=== PATIENT | female | born 1985 | race Caucasian/White ===

== ENCOUNTER 2018-06-13 18:54 | Emergency (ER) | payer BC ==
[2018-06-13 19:28] LABS: #Basophils 0.1 thou/uL (0.0-0.2); #Lymphocytes 1.3 thou/uL (1.20-3.40); #Monocytes 0.6 thou/uL (0.11-0.59); #Neutrophils 2.5 thou/uL (1.40-6.50); %Basophils 1.7 % (0.0-1.0); %Eosinophils 0.1 % (0.0-10.0); %Lymphocytes 29.4 % (21.0-51.0); %Monocytes 12.7 % (0.0-10.0); %Neutrophils 56.2 % (42.0-75.0); Hemoglobin 14.2 g/dL (12.0-16.0); Mean Corpuscular HGB CONC 33.4 g/dL (32.0-36.0); Mean Corpuscular Hemoglobin 32.7 pg (27.0-31.0); Mean Corpuscular Volume 97.8 fL (78.0-98.0); Mean Platelet Volume 7.8 fL (7.4-10.4); Platelet Count 200 thou/uL (130-400); RBC Distribution Width 10.5 % (11.5-14.5); Red Blood Cell (RBC) Count 4.34 mill/uL (4.20-5.40); White Blood Cell (WBC) Count 4.5 thou/uL (4.8-10.8)
[2018-06-13 19:56] LABS: ALT (SGPT) 18 U/L (8-55); AST (SGOT) 24 U/L (5-34); Albumin 4.4 g/dL (3.5-5.0); Alkaline Phosphatase 61 U/L (40-150); Anion Gap 11 mmol/L (10-20); BUN (Urea Nitrogen) 9 mg/dL (7.0-18.7); Bilirubin, Total 0.3 mg/dL (0.2-1.2); Calc. Creatinine Clearance 0 mL/min (70-130); Calcium 9.5 mg/dL (7.8-10.44); Carbon Dioxide 25 mmol/L (22-29); Chloride 106 mmol/L (98-107); Estimated GFR-MDRD 89; Globulin 2.7 g/dL (2.4-3.5); Glucose 77 mg/dL (70-105); Potassium 3.8 mmol/L (3.5-5.1); Protein, Total 7.1 g/dL (6.0-8.3); Sodium 138 mmol/L (136-145)
[2018-06-13 20:00] LABS: Bilirubin Negative (Negative); Blood, Urine Negative (Negative); Clarity CLEAR (Clear); Glucose, Urine (Dipstick) Negative (Negative); Leukocyte Negative (Negative); Nitrite Negative (Negative); Protein, Urine (Dipstick) Negative (Neg-Trace); Specific Gravity, Urine 1.012 (1.002-1.036); Urobilinogen 0.2 mg/dL (0.2-1.0); pH, Urine 5.5 (5.0-9.0)
[2018-06-13] MEDS ORDERED: Ondansetron ODT 4 MG TAB ONE (20:53)
== END 2018-06-13 21:19 | disposition home or self-care (01) ==
LOC: ERS 18:54
DX: O21.9 Vomiting of pregnancy, unspecified (principal); O99.511 Diseases of the respiratory system complicating pregnancy, first trimester; J06.9 Acute upper respiratory infection, unspecified; Z3A.01 Less than 8 weeks gestation of pregnancy
CPT/HCPCS: 36415; 80053; 81003; 85025; 87086; 87804; 99284; Q0162

== ENCOUNTER 2018-07-12 16:59 | Outpatient (CLI) | payer BC ==
[2018-07-12 17:47] LABS: Hemoglobin 13.5 g/dL (12.0-16.0); Mean Corpuscular HGB CONC 32.3 g/dL (32.0-36.0); Mean Corpuscular Hemoglobin 32.2 pg (27.0-31.0); Mean Corpuscular Volume 99.4 fL (78.0-98.0); Mean Platelet Volume 7.2 fL (7.4-10.4); Platelet Count 298 thou/uL (130-400); RBC Distribution Width 11.2 % (11.5-14.5); White Blood Cell (WBC) Count 8.6 thou/uL (4.8-10.8)
== END 2018-07-12 17:00 | disposition home or self-care (01) ==
LOC: LABBT 16:59
PROVIDERS: ATTEND Obstetrics & Gynecology
DX: Z01.812 Encounter for preprocedural laboratory examination (principal); G56.01 Carpal tunnel syndrome, right upper limb
CPT/HCPCS: 85027; 86850; 86900; 86901

== ENCOUNTER 2018-07-14 07:33 | Day surgery (SDC) | payer BC ==
[2018-07-12 17:29] VITALS: BMI 20.5
--- NOTE | 2018-07-14 07:25 | HP ---
She is scheduled for surgery on Tuesday morning, July 14. HISTORY OF PRESENT ILLNESS: Ms. Calixto is a 32-year-old white female, G1, P0, who was 11-12 weeks by ultrasound at 7 weeks. She came for routine OB visit on 07/12. We were unable to auscultate heart tones by Doppler, and therefore, transvaginal ultrasound was performed. Unfortunately, an 8-week embryonic demise was confirmed. The patient denied any current vaginal bleeding or any pelvic pain. PAST MEDICAL HISTORY: Negative. PAST SURGICAL HISTORY: Tonsillectomy. FAMILY HISTORY: Noncontributory. ALLERGIES: SHE HAS ALLERGIES TO AUGMENTIN. SOCIAL HISTORY: Nonsmoker. No drinking. She is . OB LABS: Significant for her blood type is B negative. Urine culture was negative. Chlamydia and gonorrhea were negative. HIV, hepatitis B surface antigen, HIV were all negative. PHYSICAL EXAMINATION: VITAL SIGNS: Her blood pressure is 118/68, weight 120 pounds, pulse regular at 70. HEENT: Within normal limits. CHEST: Clear to auscultation. HEART: Regular rate and rhythm. S1 and S2 heart sounds. No murmurs, rubs, or gallops. ABDOMEN: Soft, nontender, nondistended with no palpable masses. PELVIC: Vulva and vagina had no lesions. Cervix had no lesions. Os was closed. Her uterus was 8-week size and retroverted. No adnexal masses were seen or palpated. ASSESSMENT: This is a 32-year-old white female, G1, P0, with 8-week embryonic demise, missed miscarriage. PLAN: Plan is to proceed with suction D and C on 07/14/2018. The patient will receive 800 mcg of vaginal Cytotec 3 hours prior to the procedure for cervical ripening. Risks and benefits of procedure have been discussed in detail. She is set for 07/14/2018. Job ID: [id number]
[2018-07-14] MEDS ORDERED: Fentanyl 100 MCG/2 ML VIAL ONE (09:32)
[2018-07-14] MEDS ORDERED: Midazolam HCl 2 mg/2 ml Vial ONE (09:46)
[2018-07-14] MEDS ORDERED: Clindamycin/D5W 900 mg/50 ml Premix Bag ONE (10:12)
[2018-07-14] MEDS ORDERED: Meperidine HCl/PF 25 MG/ML VIAL ONE (10:40)
--- NOTE | 2018-07-14 11:10 | OP ---
DATE OF PROCEDURE: 07/14/2018 PREOPERATIVE DIAGNOSES: 1. 32-year-old white female, G1, P0, with 8-week embryonic demise. 2. Rh negative. POSTOPERATIVE DIAGNOSES: 1. 32-year-old white female, G1, P0, with 8-week embryonic demise. 2. Rh negative. PROCEDURE PERFORMED: Suction dilatation and curettage. ANESTHESIA: General endotracheal. ESTIMATED BLOOD LOSS: 400 mL. COMPLICATIONS: None. COUNTS: Correct x2. ANTIBIOTICS: Clindamycin 900 mg IV, on-call to OR. FINDINGS: 1. Uterus sounded to 11 cm. Copious products of conception were evacuated from the endometrial cavity. 2. Scant vaginal bleeding noted postprocedure. DISPOSITION: Recovery room and the patient will receive one amp of IV Rhophylac for Rh-negative status and plan for discharge home from Day Stay with followup in approximately three weeks. DESCRIPTION OF PROCEDURE: The patient previously received informed consent in regard to surgery. She was taken back to the operating room, where she received general endotracheal anesthetic agent without complications. She was placed in dorsal lithotomy position and was prepped and draped in usual sterile fashion. An in and out catheterization of the bladder was performed with 100 mL of clear urine draining. She was then examined under anesthesia, noted to be retroverted. Speculum was placed. The anterior lip of the cervix was grasped with a single-tooth tenaculum. Uterus sounded to 11 cm. The uterus was then sequentially dilated to a size 18 Torres dilator. A size 8 mm curved curette was chosen and sharp curettage of the cavity was initially performed loosening of the products of conception. The cavity was then carefully and meticulously suctioned until minimal tissue was removed. Again, sharp curettage was performed loosening up any remaining fragments of tissue. This again was suctioned to 60 mm pressure. Once there was scant tissue being removed, the suctioning was stopped. Tenaculum was removed. A sponge stick was placed in the vagina over the tenaculum site and hemostasis was noted. The uterus had been massaged and was firm and no active supracervical bleeding of significance was noted. The patient was awakened from the anesthesia and transferred to recovery room in stable condition. Job ID: [id number]
[2018-07-14] MEDS ORDERED: HYDROcodone/Acetaminophen 5/325 mg Tablet ONE (12:13)
[2018-07-14] MEDS ORDERED: Dexamethasone 20 MG/5 ML VIAL ONE (13:48)
[2018-07-14] MEDS ORDERED: Lidocaine 1% PF 5 ML VIAL ONE (13:48)
[2018-07-14] MEDS ORDERED: Metoclopramide HCl 10 MG/2 ML VIAL ONE (13:48)
[2018-07-14] MEDS ORDERED: PROPOFOL 200 MG/20 ML VIAL ONE (13:48)
[2018-07-14] MEDS ORDERED: Ondansetron PF 4 MG/2 ML Vial ONE (13:48)
[2018-07-14] MEDS ORDERED: Ketorolac Tromethamine 30 MG/ML VIAL ONE (13:48)
== END 2018-07-14 13:40 | disposition home or self-care (01) ==
LOC: SDC 07:33
PROVIDERS: ATTEND Obstetrics & Gynecology
PROC: 10D17ZZ Extraction of Products of Conception, Retained, Via Natural or Artificial Opening (ICD-10-PCS; principal; 2018-07-14)
DX: O02.1 Missed abortion (principal); Z90.89 Acquired absence of other organs; Z88.1 Allergy status to other antibiotic agents; Z79.899 Other long term (current) drug therapy
CPT/HCPCS: 88233; 88262; 88291; 88305; 90384; 96372; J2175; J2250; J3010; J3490

== ENCOUNTER 2019-09-24 03:50 | Outpatient (CLI) | payer BC, OTHER ==
[2019-09-24 18:17] LABS: SARS-CoV-2 MS2 Positive; SARS-CoV-2 N Gene Negative; SARS-CoV-2 S Gene Negative; SARS-CoV-2 orf1ab Negative
== END 2019-09-24 03:51 | disposition home or self-care (01) ==
LOC: ERS 03:50
PROVIDERS: ATTEND Obstetrics & Gynecology
DX: Z01.812 Encounter for preprocedural laboratory examination (principal); Z20.828 Contact with and (suspected) exposure to other viral communicable diseases
CPT/HCPCS: 87635; U0003

== ENCOUNTER 2019-09-24 19:15 | Inpatient (IN) | payer BC, OTHER ==
[~2019-09-24 19:15] MED LIST: Bupivacaine/Epinephrine 0.25% 30 ML VIAL ONE
[2019-09-24] MEDS ORDERED: HYDROcodone/Acetaminophen 5/325 mg Tablet PO PRN (20:16)
[2019-09-24] MEDS ORDERED: Lidocaine 1% (PF) 30 ML VIAL SC PRN (20:16)
[2019-09-24] MEDS ORDERED: hydrALAZINE 20 MG/ML VIAL SLOW IVP PRN (20:16)
[2019-09-24] MEDS ORDERED: Butorphanol Tartrate 1 MG/ML VIAL SLOW IVP PRN (20:16)
[2019-09-24] MEDS ORDERED: Ibuprofen 800 MG TAB PO PRN (20:16)
[2019-09-24] MEDS ORDERED: Ondansetron PF 4 MG/2 ML Vial IVP PRN (20:16)
[2019-09-24] MEDS ORDERED: Misoprostol 200 MCG TAB PR PRN (20:16)
[2019-09-24] MEDS ORDERED: Carboprost 250 MCG/ML AMP IM PRN (20:16)
[2019-09-24] MEDS ORDERED: Zolpidem Tartrate 5 MG TAB PO PRN (20:16)
[2019-09-24] MEDS ORDERED: NS / Oxytocin 40 units/1000ml 1,000 ML IV PRN (20:16)
[2019-09-24] MEDS ORDERED: Acetaminophen 500 MG TAB PO PRN (20:16)
[2019-09-24] MEDS ORDERED: Diphenoxylate HCl/Atropine Tablet PO PRN ×2 (20:16)
[2019-09-24] MEDS ORDERED: Promethazine HCl 25 MG/ML VIAL IM PRN (20:16)
[2019-09-24 20:25] VITALS: BMI 27.1
[2019-09-24] MEDS ORDERED: NS w/ Oxytocin 10 units 500 ML IV SCH (20:30)
[2019-09-24] MEDS: Lactated Ringer's 1,000 ML IV SCH (20:56)
[2019-09-24] MEDS: Misoprostol 100 MCG TAB VAG SCH (20:56)
[2019-09-24 21:19] LABS: Hemoglobin 14.2 g/dL (12.0-16.0); Mean Corpuscular HGB CONC 33.2 g/dL (32.0-36.0); Mean Corpuscular Hemoglobin 33.3 pg (27.0-31.0); Mean Platelet Volume 8.4 fL (7.4-10.4); Platelet Count 277 thou/uL (130-400); RBC Distribution Width 10.9 % (11.5-14.5); Red Blood Cell (RBC) Count 4.28 mill/uL (4.20-5.40); White Blood Cell (WBC) Count 12.3 thou/uL (4.8-10.8)
[2019-09-24 21:58] LABS: HBSAg Index 0.11 S/CO (0-0.99); Hep B Surf Ag Non-Reactive S/CO (NonReactive); Syphilis Antibody Nonreactive (Nonreactive); Syphilis Antibody Index 0.04 S/CO (<1.00 Non-Reactive)
[2019-09-25] MEDS ORDERED: Fentanyl 4 mcg/Bup 0.1% Cadd 100 ML ONE (02:16)
[2019-09-25] MEDS: Lactated Ringer's 1,000 ML IV SCH ×2 (02:35→19:58)
[2019-09-25] MEDS ORDERED: EPHEDRINE 25 MG/5 ML SYRINGE SLOW IVP PRN (03:37)
[2019-09-25] MEDS ORDERED: Lactated Ringer's 500 ML IV PRN (03:37)
[2019-09-25] MEDS ORDERED: Promethazine HCl 25 MG/ML VIAL IM PRN (03:37)
[2019-09-25] MEDS ORDERED: Naloxone HCl 0.4 mg/ml Vial IVP PRN ×2 (03:37)
[2019-09-25] MEDS ORDERED: diphenhydrAMINE 50 MG/ML VIAL IVP PRN (03:37)
[2019-09-25] MEDS ORDERED: Acetaminophen 325 MG TAB PO PRN (03:37)
[2019-09-25] MEDS ORDERED: Ondansetron PF 4 MG/2 ML Vial IVP PRN (03:37)
[2019-09-25] MEDS ORDERED: Fentanyl 4 mcg/Bupivacaine 0.1% Cassette 100 ML EPIDURAL SCH (03:45)
[2019-09-25] MEDS ORDERED: Communication Order-Pharmacy FS SCH (03:45)
[2019-09-25] MEDS: Misoprostol 100 MCG TAB VAG SCH ×3 (05:59→19:58)
[2019-09-25] MEDS: NS / Oxytocin 40 units/1000ml 1,000 ML IV SCH ×2 (08:03→09:21)
[2019-09-25 08:26] LABS: Actual Bicarbonate (HCO3v) 20 mEq/L (22-28); Analyzer IN Cardio OR; Base Excess -5.4 mEq/L (-2.0 to +3.0); pH (Cord, venous) 7.35 (7.32-7.43)
[2019-09-25 08:28] LABS: Actual Bicarbonate (HCO3a) 22.2 mEq/L (22-28); Analyzer IN Cardio OR; Base Excess (BEa) -6.4 mEq/L (-2.0 to +3.0)
--- NOTE | 2019-09-25 08:39 | PDOC.OPDEL ---
OB Operative/Delivery Note Delivery Dr/Surgeon: Scooter Pre-Delivery Diagnosis: elective induction, non-reassuring tracing, other (Non reassurring feta heart rate tracing in second stage c/c/+4 OA. Lei see forceps applied. ABG cord gas 7.22....) Procedure/Post Delivery Dx: operative vaginal delivery Weeks gestation: 40 Anesthesia: epidural - Findings A Sex: female - Additional Findings/Plan Placenta delivered: spontaneous Repaired Obstetrical Laceration: 2nd degree (Bilateral vaginal side palencia repaired.)
[2019-09-25] MEDS ORDERED: Lanolin Ointment 7 GM TUBE TOP PRN (08:40)
[2019-09-25] MEDS ORDERED: traMADol HCl 50 MG TAB PO PRN (08:40)
[2019-09-25] MEDS ORDERED: Adacel (T-DAP) 0.5 ML SYRINGE IM ONE (08:40)
[2019-09-25] MEDS ORDERED: Bisacodyl 10 MG SUPP PR PRN (08:40)
[2019-09-25] MEDS ORDERED: Milk Of Magnesia 30 ML UDCUP PO PRN (08:40)
[2019-09-25] MEDS ORDERED: Preparation H Ointment 28 GM TUBE PR PRN (08:40)
[2019-09-25] MEDS ORDERED: Benzocaine-Menthol 82.5 ML CAN TOP PRN (08:40)
[2019-09-25] MEDS ORDERED: hydrALAZINE 20 MG/ML VIAL SLOW IVP PRN (08:40)
[2019-09-25] MEDS: Prenatal Vitamin 1 TAB PO SCH (11:17)
[2019-09-25] MEDS: Docusate Calcium (SURFAK) 240 MG CAP PO SCH ×2 (11:17→22:17)
[2019-09-25] MEDS: Ibuprofen 800 MG TAB PO SCH ×2 (14:40→22:17)
[2019-09-25] MEDS ORDERED: Naloxone HCl 0.4 mg/ml Vial ONE (17:20)
[2019-09-26] MEDS: Ibuprofen 800 MG TAB PO SCH ×3 (05:19→21:06)
--- NOTE | 2019-09-26 07:44 | PDOC.PP ---
Post Progress Note Post Day #: 1 Subjective: Working on breast feeding. PO intake tolerated: yes Flatus: yes Ambulation: yes Vital Signs (12 hours) Temp Pulse Resp BP Pulse Ox 09/26/19 05:20 98.1 F 80 16 108/57 L 09/26/19 00:55 97.1 F L 81 16 124/61 09/25/19 20:05 98.5 F 87 16 131/59 L 98 Weight Weight 158 lb Result Diagrams: 09/24/19 20:53 Additional Labs: Post Labs Blood Type B NEGATIVE 09/24/19 20:53 Hep Bs Antigen Non-Reactive S/CO (NonReactive) 09/24/19 20:53 - Assessment/Plan Post day 1 from low forceps assisted vaginal delivery for non reassurring heart rate tracing. Routine post and nperineal care. Anticipate d/c in AM.
[2019-09-26] MEDS: Docusate Calcium (SURFAK) 240 MG CAP PO SCH ×2 (09:31→21:07)
[2019-09-26] MEDS: Prenatal Vitamin 1 TAB PO SCH (09:31)
[2019-09-26] MEDS: traMADol HCl 50 MG TAB PO PRN (09:31)
[2019-09-27] MEDS: Ibuprofen 800 MG TAB PO SCH ×2 (05:08→14:32)
--- NOTE | 2019-09-27 07:45 | PDOC.PP ---
Post Progress Note Post Day #: 2 Subjective: Breast feeding going well. Had BM with no issues. PO intake tolerated: yes Flatus: yes Ambulation: yes Vital Signs (12 hours) Temp Pulse Resp BP Pulse Ox 09/26/19 21:00 99.0 F 102 H 18 128/65 99 Weight Weight 158 lb - Physical Examination Abdominal: + bowel sounds, lochia, no distention, appropriately TTP Result Diagrams: 09/24/19 20:53 Additional Labs: Post Labs Blood Type B NEGATIVE 09/24/19 20:53 Hep Bs Antigen Non-Reactive S/CO (NonReactive) 09/24/19 20:53 - Assessment/Plan Post day 2. Doing well. D/c home. F/u 6 weeks. OTC ibuprofen and tylenol and colace as needed.
[2019-09-27 07:59] VITALS: BP 101/53; TEMP 98.5
[2019-09-27] MEDS: Prenatal Vitamin 1 TAB PO SCH (08:45)
[2019-09-27] MEDS: Docusate Calcium (SURFAK) 240 MG CAP PO SCH (08:46)
[2019-09-27] MEDS: traMADol HCl 50 MG TAB PO PRN (10:50)
== END 2019-09-27 16:38 | disposition home or self-care (01) | DRG 807 ==
LOC: L&D 19:52 → 3SW 09-25 10:58
PROVIDERS: ADMIT Obstetrics & Gynecology; ATTEND Obstetrics & Gynecology
PROC: 10D07Z3 Extraction of Products of Conception, Low Forceps, Via Natural or Artificial Opening (ICD-10-PCS; principal; 2019-09-25)
PROC: 0KQM0ZZ Repair Perineum Muscle, Open Approach (ICD-10-PCS; 2019-09-25)
PROC: 10907ZC Drainage of Amniotic Fluid, Therapeutic from Products of Conception, Via Natural or Artificial Opening (ICD-10-PCS; 2019-09-25)
PROC: 3E0P7VZ Introduction of Hormone into Female Reproductive, Via Natural or Artificial Opening (ICD-10-PCS; 2019-09-25)
PROC: 3E033VJ Introduction of Other Hormone into Peripheral Vein, Percutaneous Approach (ICD-10-PCS; 2019-09-25)
DX: O76 Abnormality in fetal heart rate and rhythm complicating labor and delivery (principal); Z37.0 Single live birth; O70.1 Second degree perineal laceration during delivery; Z3A.40 40 weeks gestation of pregnancy
CPT/HCPCS: 36415; 51702; 82805; 85027; 86780; 86850; 86870; 86900; 86901; 87340; 87635; A4353; J2310; U0003